=== PATIENT | male | born 1985 | race Caucasian/White ===

== ENCOUNTER 2022-01-06 19:24 | Emergency (ER) | payer OTHER, MEDICAID ==
[~2022-01-06] VITALS: Ht 177.8 cm; Wt 104.3 kg
[2022-01-06] MEDS ORDERED: CLONAZEPAM0.5 MG PO (19:30)
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
[2022-01-07] MEDS ORDERED: KLONOPIN0.5 MG PO (22:28)
== END 2022-01-07 00:03 | disposition home or self-care (01) ==
LOC: ED 19:24
DX: S20.212A Contusion of left front wall of thorax, initial encounter (principal); W22.8XXA Striking against or struck by other objects, initial encounter
CPT/HCPCS: 36415; 71045; 71250; 85025; 96374; 96375; 99284-25; J1170; J1953; J2060; J2250; J2270